=== PATIENT | female | born 1985 | race Caucasian/White ===

== ENCOUNTER → 2016-09-01 | Outpatient (CLI) | payer OTHER ==
[~2016-09-01] MED LIST: COLA100C PO; MOTR200T44 PO; NORMODYNE PO; PRENTAB54 PO; TYLENOL PO
[2016-09-01 10:32] LABS: BASO % 0.2 % (0.0-1.0); EOS # 0.2 K/mm3 (0.0-0.50); EOS % 1.6 % (0.0-3.0); LARGE UNSTAINED CELL # 0.1 K/mm3 (0.0-0.4); LARGE UNSTAINED CELL % 0.7 % (0.0-4.0); LYMPH # 1.8 K/mm3 (1.5-4.5); LYMPH % 14.2 % (24.0-44.0); MEAN CORPUSCULAR HEMOGLOBIN 30.1 pg (27.0-33.0); MEAN CORPUSCULAR HGB CONC 35.1 g/dl (32.0-36.5); MEAN CORPUSCULAR VOLUME 85.8 fl (80.0-96.0); MONO # 0.4 K/mm3 (0.0-0.8); MONO % 3.6 % (0.0-5.0); NEUTROPHILS # 9.3 K/mm3 (1.8-7.7); NEUTROPHILS % 79.7 % (36.0-66.0); PLATELET COUNT, AUTOMATED 312 k/mm3 (150-450); RED CELL DISTRIBUTION WIDTH 12.1 % (11.5-14.5); WHITE BLOOD COUNT 11.7 K/mm3 (4.0-10.0)
[2016-09-01 11:14] LABS: ALBUMIN 3.5 GM/DL (3.2-5.2); ALBUMIN/GLOBULIN RATIO 1.03 (1.00-1.93); ALKALINE PHOSPHATASE 81 U/L (45-117); ALT/SGPT 16 U/L (12-78); ANION GAP 9 MEQ/L (8-16); AST/SGOT 17 U/L (15-37); BILIRUBIN,TOTAL 0.4 MG/DL (0.2-1.0); BLOOD UREA NITROGEN 11 MG/DL (7-18); CALCIUM LEVEL 8.7 MG/DL (8.5-10.1); CARBON DIOXIDE LEVEL 27 MEQ/L (21-32); CHLORIDE LEVEL 106 MEQ/L (98-107); CHOLESTEROL LEVEL 196 MG/DL (<200); CREATININE FOR GFR 0.76 MG/DL (0.55-1.02); FREE T4 1.02 NG/DL (0.76-1.46); GLOMERULAR FILTRATION RATE > 60.0 (>60); GLUCOSE, FASTING 90 MG/DL (70-105); POTASSIUM SERUM 4.7 MEQ/L (3.5-5.1); SODIUM LEVEL 142 MEQ/L (136-145); TOTAL PROTEIN 6.9 GM/DL (6.4-8.2); TRIGLYCERIDES LEVEL 227 MG/DL (<150)
== END ==
LOC: M SMT 08:39
PROVIDERS: ATTEND Family Medicine
DX: Z13.0 Encounter for screening for diseases of the blood and blood-forming organs and certain disorders involving the immune mechanism (principal); Z13.29 Encounter for screening for other suspected endocrine disorder; Z13.220 Encounter for screening for lipoid disorders

== ENCOUNTER → 2016-09-01 | Outpatient (CLI) | payer OTHER ==
--- NOTE | 2016-09-01 08:54 | REP ---
Clinical: Hemangioma. Technique: Wu scale ultrasound using curved array transducer. Findings: The liver and pancreas are normal in contour, size, and echogenicity without focal hepatic or pancreatic lesions identified. Benign hepatic hemangiomas in the right lobe measure 2.5 cm diameter and smaller adjacent subcentimeter hemangioma. The gallbladder has been removed. No biliary ductal dilatation is appreciated, and the common bile duct measures 2.5 mm diameter. The right kidney is normal in reniform shape without hydronephrosis and measures 10.5 x 5.4 x 4.7 cm. No ascites. Impression: Two benign hepatic hemangiomas in the right lobe. Prior cholecystectomy. Signed by David Holrbook MD 09/01/2016 08:45 A
== END ==
LOC: M RAD 08:08
PROVIDERS: ATTEND Family Medicine
DX: K76.89 Other specified diseases of liver (principal); K77 Liver disorders in diseases classified elsewhere

== ENCOUNTER → 2017-01-02 | Outpatient (CLI) | payer OTHER ==
[~2017-01-02] MED LIST changes: -COLA100C PO; +COLA100C3 PO
[2017-01-02 13:22] LABS: BASO % 0.4 % (0.0-1.0); EOS # 0.1 K/mm3 (0.0-0.50); EOS % 1.6 % (0.0-3.0); LARGE UNSTAINED CELL # 0.1 K/mm3 (0.0-0.4); LARGE UNSTAINED CELL % 1.4 % (0.0-4.0); LYMPH % 24.9 % (24.0-44.0); MEAN CORPUSCULAR HEMOGLOBIN 30.3 pg (27.0-33.0); MEAN CORPUSCULAR HGB CONC 34.1 g/dl (32.0-36.5); MEAN CORPUSCULAR VOLUME 88.9 fl (80.0-96.0); MONO # 0.5 K/mm3 (0.0-0.8); MONO % 6.8 % (0.0-5.0); NEUTROPHILS % 64.8 % (36.0-66.0); PLATELET COUNT, AUTOMATED 322 k/mm3 (150-450); RED CELL DISTRIBUTION WIDTH 12.8 % (11.5-14.5); WHITE BLOOD COUNT 7.7 K/mm3 (4.0-10.0)
[2017-01-03 10:51] LABS: HBsAg Prenatal NEGATIVE (NEGATIVE)
== END ==
LOC: M SMT 09:36
PROVIDERS: ATTEND Advanced Practice Midwife
DX: Z34.81 Encounter for supervision of other normal pregnancy, first trimester (principal)

== ENCOUNTER 2017-02-02 12:44 | Emergency (ER) | payer OTHER ==
[~2017-02-02] VITALS: Ht 172.7 cm; Wt 105.9 kg
[~2017-02-02 12:44] MED LIST changes: -COLA100C3 PO; +COLA100C5 PO
[2017-02-02 14:34] LABS: BASO % 0.5 % (0.0-1.0); EOS # 0.2 K/mm3 (0.0-0.50); EOS % 1.7 % (0.0-3.0); LARGE UNSTAINED CELL # 0.1 K/mm3 (0.0-0.4); LARGE UNSTAINED CELL % 1.4 % (0.0-4.0); LYMPH # 2.8 K/mm3 (1.5-4.5); LYMPH % 26.6 % (24.0-44.0); MEAN CORPUSCULAR HEMOGLOBIN 29.7 pg (27.0-33.0); MEAN CORPUSCULAR HGB CONC 34.5 g/dl (32.0-36.5); MEAN CORPUSCULAR VOLUME 86.2 fl (80.0-96.0); MONO # 0.6 K/mm3 (0.0-0.8); MONO % 5.8 % (0.0-5.0); NEUTROPHILS # 6.5 K/mm3 (1.8-7.7); NEUTROPHILS % 64.1 % (36.0-66.0); PLATELET COUNT, AUTOMATED 373 k/mm3 (150-450); RED CELL DISTRIBUTION WIDTH 12.3 % (11.5-14.5); WHITE BLOOD COUNT 10.1 K/mm3 (4.0-10.0)
[2017-02-02 14:57] LABS: ANION GAP 10 MEQ/L (8-16); BLOOD UREA NITROGEN 9 MG/DL (7-18); CALCIUM LEVEL 9.2 MG/DL (8.5-10.1); CARBON DIOXIDE LEVEL 26 MEQ/L (21-32); CHLORIDE LEVEL 103 MEQ/L (98-107); CREATININE FOR GFR 0.64 MG/DL (0.55-1.02); GLOMERULAR FILTRATION RATE > 60.0 (>60); GLUCOSE, FASTING 88 MG/DL (70-105); POTASSIUM SERUM 3.5 MEQ/L (3.5-5.1); SODIUM LEVEL 139 MEQ/L (136-145)
--- NOTE | 2017-02-02 16:42 | REP ---
FIRST TRIMESTER ULTRASOUND: Real-time sonographic evaluation of the gravid uterus is performed utilizing transabdominal and endovaginal technique. Uterus measures 8.3 x 5.2 x 5.1 cm. Intrauterine gestational sac contains a pole with a crown rump length of 16 mm. No heart motion is detected, consistent with demise. That size corresponds to an 8 week gestational age. Right ovary measures 3.6 x 2.6 x 1.7 cm and left ovary measures 6.6 x 5.3 x 6.0 cm. There is a cyst of the left ovary 4.9 x 5.8 x 4.7 cm. There is no evidence of ovarian torsion bilaterally, with blood flow seen in each ovary with Duplex Doppler evaluation. No free fluid is seen. IMPRESSION: Intrauterine gestational sac contains a fetus with a length of 16 mm corresponding to 8 weeks gestational age. No heart motion is detected consistent with intrauterine demise. Left ovarian cyst 5.8 cm maximum diameter. No torsion. Signed by Daniel Wu MD 02/02/2017 04:47 P
[2017-02-02 16:52] VITALS: BP 120/78
[2017-02-05] MEDS ORDERED: OXYC1TAB23 PO (15:19)
== END 2017-02-02 16:53 | disposition home or self-care (01) ==
LOC: M ED 12:44
DX: O02.1 Missed abortion (principal)

== ENCOUNTER → 2017-02-05 | Day surgery (SDC) | payer OTHER ==
[~2017-02-05] MED LIST changes: +ALBUTEROL SULFATE 2.5 MG/0.5 ML INH NEB SOLN As Ordered ONE; +ALBUTEROL SULFATE 2.5 MG/0.5 ML INH NEB SOLN INH ONE; +DOXYCYCLINE HYCLATE 100 MG TAB PO ONE; +DOXYCYCLINE HYCLATE 100 MG in D5W MINI-BAG PLUS 100 ML IV ONE; +HYDROmorphone HCL 1 MG/ML SYRINGE (J1170) IV PRN; +KETOROLAC 60 MG/2 ML VIAL (J1885) As Ordered ONE; +LIDOCAINE 2% INJ 100 MG/5 ML SDV (FOR ANES.) As Ordered ONE; +LR 1,000 ML IV ONE; +LR 1,000 ML IV SCH; +MIDAZOLAM INJ 2 MG/2 ML VIAL (J2250) As Ordered ONE; +ONDANSETRON 4MG/2ML VIAL (J2405) As Ordered ONE; +ONDANSETRON 4MG/2ML VIAL (J2405) IV PRN; +OXYC1TAB23 PO; +PERCOCET 5MG/325MG TAB PO PRN; +PROPOFOL 200 MG/20 ML VIAL As Ordered ONE; +SILVER NITRATE APPLICATOR As Ordered ONE; +dexameTHASONE 4 MG/ML 1ML VIAL (J1100) As Ordered ONE; +fentaNYL 100 MCG/2 ML INJECTION (J3010) As Ordered ONE; +fentaNYL 100 MCG/2 ML INJECTION (J3010) IV PRN
[2017-02-05 16:00] VITALS: BP 137/88
--- NOTE | 2017-02-06 15:20 | RO ---
DATE OF PROCEDURE: 02/05/2017 PREOPERATIVE DIAGNOSIS: Missed , embryonic demise in the first trimester. POSTOPERATIVE DIAGNOSIS: Missed , embryonic demise in the first trimester. PROCEDURE PERFORMED: Suction dilatation and curettage. SURGEON: Solo Zhao DO INSPECTOR BALANCE WHEEL MOTION: None. ANESTHESIA: General via LMA. SPECIMENS TO PATHOLOGY: Intrauterine tissue, products of conception. ESTIMATED BLOOD LOSS: 100 mL FLUIDS REPLACED: Lactated Ringer's 600 mL. DRAINS: 50 mL urine output, in-and-out catheter. COMPLICATIONS: None. PREOPERATIVE ANTIBIOTICS: Doxycycline 100 mg IV times one. INTRAOPERATIVE FINDINGS: Uterus sounded to 8 to 10 cm. Tissue obtained was grossly consistent with products of conception. INDICATION: The patient is a 31-year-old, G2 now P1-0-1-1 with a recently diagnosed first trimester embryonic demise/miscarriage. She was counseled on available management options to include expectant medical and surgical. She has chosen surgical management via suction dilatation and curettage. PROCEDURE: The patient was counseled and on risks, benefits, indications and alternative procedure. Informed consent was obtained. She was taken to the operating room with an IV running, placed on operating table in the dorsal supine position. General anesthesia was administered and the airway secured without any difficulty. She was placed in low lithotomy position. She was prepared and draped in normal sterile fashion. A time-out was performed per protocol. The bladder was drained with a sterile in-and-out catheter. Sterile speculum was placed with good visualization of the cervix. The anterior lip of the cervix was grasped with single-tooth tenaculum and downward traction was applied. The cervix then sequentially dilated with Evaristo dilators up to #20. The size 9 curved Vacurette was placed transcervical into the intrauterine cavity and suction was applied. Multiple passes of the Vacurette were performed until there was minimal tissue and bleeding return. After the Vacurette was removed, sharp curettage was performed throughout the entire intrauterine cavity. Gritty texture was noted throughout and no residual tissue was appreciated. Minimal bleeding was noted. An additional pass of the Vacurette was performed with minimal blood and tissue return. The Vacurette was removed. Minimal bleeding from the os was noted. The single-tooth tenaculum was removed. Tenaculum sites were cauterized with silver nitrate. Excellent hemostasis was noted. Instruments and sponge count were correct times two. The patient tolerated the entire procedure well. all instruments were noted to be removed from vagina. She was transferred the postanesthesia care unit in good and stable condition.
== END | disposition home or self-care (01) ==
LOC: M SDC 12:22
PROVIDERS: ATTEND Obstetrics & Gynecology
DX: O02.1 Missed abortion (principal); R05 Cough
CPT/HCPCS: 36415; 59820; 85014; 85018; 88305; J1100; J1885; J2250; J2405; J3010

== ENCOUNTER → 2017-04-10 | Outpatient (CLI) | payer OTHER ==
[~2017-04-10] MED LIST changes: -ALBUTEROL SULFATE 2.5 MG/0.5 ML INH NEB SOLN As Ordered ONE; -ALBUTEROL SULFATE 2.5 MG/0.5 ML INH NEB SOLN INH ONE; -DOXYCYCLINE HYCLATE 100 MG TAB PO ONE; -DOXYCYCLINE HYCLATE 100 MG in D5W MINI-BAG PLUS 100 ML IV ONE; -HYDROmorphone HCL 1 MG/ML SYRINGE (J1170) IV PRN; -KETOROLAC 60 MG/2 ML VIAL (J1885) As Ordered ONE; -LIDOCAINE 2% INJ 100 MG/5 ML SDV (FOR ANES.) As Ordered ONE; -LR 1,000 ML IV ONE; -LR 1,000 ML IV SCH; -MIDAZOLAM INJ 2 MG/2 ML VIAL (J2250) As Ordered ONE; -ONDANSETRON 4MG/2ML VIAL (J2405) As Ordered ONE; -ONDANSETRON 4MG/2ML VIAL (J2405) IV PRN; -PERCOCET 5MG/325MG TAB PO PRN; -PROPOFOL 200 MG/20 ML VIAL As Ordered ONE; -SILVER NITRATE APPLICATOR As Ordered ONE; -dexameTHASONE 4 MG/ML 1ML VIAL (J1100) As Ordered ONE; -fentaNYL 100 MCG/2 ML INJECTION (J3010) As Ordered ONE; -fentaNYL 100 MCG/2 ML INJECTION (J3010) IV PRN
== END ==
LOC: M LAB 16:00
PROVIDERS: ATTEND Obstetrics & Gynecology
DX: N91.2 Amenorrhea, unspecified (principal)

== ENCOUNTER → 2017-04-12 | Outpatient (CLI) | payer OTHER | LOC: M LAB 16:03 | PROVIDERS: ATTEND Obstetrics & Gynecology | DX: N91.2 Amenorrhea, unspecified (principal) ==

== ENCOUNTER 2017-05-30 10:13 | Emergency (ER) | payer OTHER ==
[~2017-05-30] VITALS: Ht 172.7 cm; Wt 107.7 kg
[2017-05-30 11:49] LABS: BASO % 0.2 % (0.0-1.0); EOS % 0.4 % (0.0-3.0); IMMATURE GRANULOCYTE % 0.4 % (0-0); LYMPH # 1.6 10^3/uL (1.5-4.5); LYMPH % 15.2 % (24.0-44.0); MEAN CORPUSCULAR HEMOGLOBIN 30.3 pg (27.0-33.0); MEAN CORPUSCULAR HGB CONC 34.5 g/dl (32.0-36.5); MEAN CORPUSCULAR VOLUME 87.8 fl (80.0-96.0); MONO # 0.7 10^3/uL (0.0-0.8); MONO % 6.8 % (0.0-5.0); PLATELET COUNT, AUTOMATED 333 10^3/uL (150-450); RED CELL DISTRIBUTION WIDTH 12.1 % (11.5-14.5); WHITE BLOOD COUNT 10.4 10^3/uL (4.0-10.0)
--- NOTE | 2017-05-30 12:38 | REP ---
OB ULTRASOUND: Real-time sonographic evaluation of the gravid uterus is performed utilizing transabdominal technique. There is a single living intrauterine gestation. The estimated gestational age is 11 weeks based on a crown/rump length of 42 mm, EDC 12/19/2017. heart rate is 180 beats per minute. There is no subchorionic hemorrhage. Corpus luteum of the left ovary measures 3.4 x 2.3 x 3.4 cm. Blood flow is seen in each ovary with duplex Doppler evaluation, with no torsion. Signed by Daniel Wu MD 05/30/2017 01:55 P
[2017-05-30 12:57] VITALS: BP 145/84
== END 2017-05-30 12:58 | disposition home or self-care (01) ==
LOC: M ED 10:13
DX: O20.0 Threatened abortion (principal); Z3A.11 11 weeks gestation of pregnancy; O13.1 Gestational [pregnancy-induced] hypertension without significant proteinuria, first trimester

== ENCOUNTER → 2017-06-29 | Outpatient (CLI) | payer OTHER ==
[2017-06-29 07:30] LABS: BASO % 0.2 % (0.0-1.0); EOS # 0.1 10^3/uL (0.0-0.50); IMMATURE GRANULOCYTE % 0.4 % (0-0); LYMPH # 1.4 10^3/uL (1.5-4.5); LYMPH % 14.1 % (24.0-44.0); MEAN CORPUSCULAR HEMOGLOBIN 29.8 pg (27.0-33.0); MEAN CORPUSCULAR HGB CONC 34.3 g/dl (32.0-36.5); MEAN CORPUSCULAR VOLUME 86.8 fl (80.0-96.0); MONO # 0.7 10^3/uL (0.0-0.8); MONO % 7.1 % (0.0-5.0); NEUTROPHILS # 7.8 10^3/uL (1.8-7.7); NEUTROPHILS % 77.2 % (36.0-66.0); PLATELET COUNT, AUTOMATED 289 10^3/uL (150-450); RED CELL DISTRIBUTION WIDTH 12.5 % (11.5-14.5)
[2017-06-29 10:30] LABS: HBsAg Prenatal NEGATIVE (NEGATIVE)
== END ==
LOC: M LAB 06:32
PROVIDERS: ATTEND Obstetrics & Gynecology
DX: Z36.9 Encounter for antenatal screening, unspecified (principal); Z13.79 Encounter for other screening for genetic and chromosomal anomalies; Z3A.12 12 weeks gestation of pregnancy

== ENCOUNTER → 2017-07-06 | Outpatient (CLI) | payer OTHER ==
[2017-07-06 13:00] LABS: ALT/SGPT 16 U/L (12-78); AST/SGOT 12 U/L (7-37); BILIRUBIN,TOTAL 0.3 MG/DL (0.2-1.0); CREATININE FOR GFR 0.61 MG/DL (0.55-1.02); GLOMERULAR FILTRATION RATE > 60.0 (>60); URIC ACID 3.6 MG/DL (2.6-6.0)
== END ==
LOC: M SMT 09:38
DX: Z34.82 Encounter for supervision of other normal pregnancy, second trimester (principal)

== ENCOUNTER → 2017-09-25 | Outpatient (CLI) | payer OTHER ==
[2017-09-25 13:30] LABS: BASO % 0.3 % (0.0-1.0); EOS # 0.1 10^3/uL (0.0-0.50); EOS % 0.7 % (0.0-3.0); HEMATOCRIT 32.5 % (36.0-47.0); HEMOGLOBIN 10.7 g/dl (12.0-16.0); IMMATURE GRANULOCYTE % 1.1 % (0-3.0); LYMPH # 1.5 10^3/uL (1.5-4.5); LYMPH % 13.3 % (24.0-44.0); MEAN CORPUSCULAR HEMOGLOBIN 30.1 pg (27.0-33.0); MEAN CORPUSCULAR HGB CONC 32.9 g/dl (32.0-36.5); MEAN CORPUSCULAR VOLUME 91.5 fl (80.0-96.0); MONO # 0.6 10^3/uL (0.0-0.8); MONO % 5.8 % (0.0-5.0); NEUTROPHILS # 8.7 10^3/uL (1.8-7.7); NEUTROPHILS % 78.8 % (36.0-66.0); PLATELET COUNT, AUTOMATED 258 10^3/uL (150-450); RED BLOOD COUNT 3.55 10^6/uL (4.00-5.40); RED CELL DISTRIBUTION WIDTH 13.5 % (11.5-14.5)
[2017-09-25 14:02] LABS: GLUCOSE CHALLENGE TEST 1 HOUR 114 MG/DL (LESS THAN 140)
== END ==
LOC: M SMT 07:54
DX: Z34.82 Encounter for supervision of other normal pregnancy, second trimester (principal); Z36.89 Encounter for other specified antenatal screening
CPT/HCPCS: 82950

== ENCOUNTER → 2017-11-06 | Outpatient (CLI) | payer OTHER ==
[2017-11-06 20:09] LABS: HEMOGLOBIN 11.3 g/dl (12.0-15.5); MEAN CORPUSCULAR HEMOGLOBIN 30.2 pg (27.0-33.0); MEAN CORPUSCULAR HGB CONC 33.2 g/dl (32.0-36.5); MEAN CORPUSCULAR VOLUME 90.9 fl (80.0-96.0); PLATELET COUNT, AUTOMATED 266 10^3/uL (150-450); RED BLOOD COUNT 3.74 10^6/uL (4.00-5.40); RED CELL DISTRIBUTION WIDTH 13.5 % (11.5-14.5); WHITE BLOOD COUNT 12.1 10^3/uL (4.0-10.0)
[2017-11-06 20:15] LABS: ALT/SGPT 12 U/L (12-78); AST/SGOT 15 U/L (7-37); BILIRUBIN,TOTAL 0.3 MG/DL (0.2-1.0); CREATININE FOR GFR 0.64 MG/DL (0.55-1.30); GLOMERULAR FILTRATION RATE > 60.0 (>60); LDH LACTATE DEHYDROGENASE 188 U/L (84-246); URIC ACID 4.4 MG/DL (2.6-6.0)
== END ==
LOC: M WUC 16:23
DX: Z36.89 Encounter for other specified antenatal screening (principal); Z3A.00 Weeks of gestation of pregnancy not specified
CPT/HCPCS: 84460

== ENCOUNTER → 2017-11-06 | Outpatient (REF) | payer OTHER ==
[2017-11-06 19:54] LABS: TOTAL PROTEIN,RANDOM URINE 11.3 MG/DL (0.0-12.0)
[2017-11-06 19:54] LABS: CREATININE,RANDOM URINE 97.3 MG/DL
== END ==
LOC: M LAB REF 18:11
DX: Z34.83 Encounter for supervision of other normal pregnancy, third trimester (principal)

== ENCOUNTER → 2017-11-23 | Outpatient (CLI) | payer OTHER ==
[2017-11-23 13:45] LABS: BASO % 0.3 % (0.0-1.0); EOS # 0.1 10^3/uL (0.0-0.50); EOS % 0.5 % (0.0-3.0); HEMATOCRIT 35.2 % (36.0-47.0); HEMOGLOBIN 11.8 g/dl (12.0-15.5); IMMATURE GRANULOCYTE % 1.3 % (0-3.0); LYMPH # 1.9 10^3/uL (1.5-4.5); LYMPH % 15.9 % (24.0-44.0); MEAN CORPUSCULAR HEMOGLOBIN 30.3 pg (27.0-33.0); MEAN CORPUSCULAR HGB CONC 33.5 g/dl (32.0-36.5); MEAN CORPUSCULAR VOLUME 90.5 fl (80.0-96.0); MONO % 8.7 % (0.0-5.0); NEUTROPHILS # 8.7 10^3/uL (1.8-7.7); NEUTROPHILS % 73.3 % (36.0-66.0); PLATELET COUNT, AUTOMATED 244 10^3/uL (150-450); RED BLOOD COUNT 3.89 10^6/uL (4.00-5.40); RED CELL DISTRIBUTION WIDTH 13.8 % (11.5-14.5); WHITE BLOOD COUNT 11.9 10^3/uL (4.0-10.0)
[2017-11-23 14:01] LABS: ALT/SGPT 15 U/L (12-78); AST/SGOT 15 U/L (7-37); BILIRUBIN,TOTAL 0.3 MG/DL (0.2-1.0); CREATININE FOR GFR 0.63 MG/DL (0.55-1.30); GLOMERULAR FILTRATION RATE > 60.0 (>60); LDH LACTATE DEHYDROGENASE 209 U/L (84-246); URIC ACID 5.5 MG/DL (2.6-6.0)
[2017-11-23 14:20] LABS: CREATININE,RANDOM URINE 31.9 MG/DL
[2017-11-23 14:20] LABS: TOTAL PROTEIN,RANDOM URINE 11.8 MG/DL (0.0-12.0)
== END ==
LOC: M SMT 09:24
DX: O13.3 Gestational [pregnancy-induced] hypertension without significant proteinuria, third trimester (principal)
CPT/HCPCS: 84460

== ENCOUNTER → 2017-11-23 | Outpatient (REF) | payer OTHER | LOC: M LAB REF 12:56 | DX: Z34.93 Encounter for supervision of normal pregnancy, unspecified, third trimester (principal) ==

== ENCOUNTER → 2017-11-26 | Outpatient (CLI) | payer OTHER | LOC: M RAD 06:15 | DX: I10 Essential (primary) hypertension (principal) | CPT/HCPCS: 76815 ==

== ENCOUNTER 2017-11-30 13:04 | Inpatient (IN) | payer OTHER ==
[2017-11-30] MEDS: LR 1,000 ML IV ×2 (14:14→22:23)
[2017-11-30 14:31] LABS: HEMATOCRIT 35.4 % (36.0-47.0); HEMOGLOBIN 11.9 g/dl (12.0-15.5); MEAN CORPUSCULAR HEMOGLOBIN 30.1 pg (27.0-33.0); MEAN CORPUSCULAR HGB CONC 33.6 g/dl (32.0-36.5); MEAN CORPUSCULAR VOLUME 89.4 fl (80.0-96.0); PLATELET COUNT, AUTOMATED 227 10^3/uL (150-450); RED BLOOD COUNT 3.96 10^6/uL (4.00-5.40); RED CELL DISTRIBUTION WIDTH 13.9 % (11.5-14.5); WHITE BLOOD COUNT 11.1 10^3/uL (4.0-10.0)
[2017-11-30] MEDS: OXYTOCIN DRIP 30 UNITS in APPROPRIATE DILUENT 1 EA IV (14:41)
[2017-11-30 14:47] LABS: CREATININE,RANDOM URINE 41.9 MG/DL
[2017-11-30 14:47] LABS: TOTAL PROTEIN,RANDOM URINE < 5.0 MG/DL (0.0-12.0)
[2017-11-30 14:48] LABS: ALT/SGPT 15 U/L (12-78); AST/SGOT 18 U/L (7-37); BILIRUBIN,TOTAL 0.3 MG/DL (0.2-1.0); CREATININE FOR GFR 0.64 MG/DL (0.55-1.30); GLOMERULAR FILTRATION RATE > 60.0 (>60); LDH LACTATE DEHYDROGENASE 227 U/L (84-246); URIC ACID 6.3 MG/DL (2.6-6.0)
[2017-11-30] MEDS ORDERED: OXYTOCIN 30 UNITS IN 0.9% NaCl 500ML IV BAG (J2590) As Ordered (23:34)
[2017-11-30] MEDS ORDERED: ONDANSETRON 4MG/2ML VIAL (J2405) IV (23:45)
[2017-11-30] MEDS ORDERED: DIBUCAINE 1% OINTMENT 30GM TOP (23:45)
[2017-11-30] MEDS ORDERED: ACETAMINOPHEN 500 MG TAB PO (23:45)
[2017-11-30] MEDS ORDERED: PROMETHAZINE 25 MG TAB PO (23:45)
[2017-11-30] MEDS ORDERED: RHOGAM 300 MCG (1500 IU) INJ (J2790) IM (23:45)
[2017-11-30] MEDS ORDERED: MEASLES,MUMPS,RUBELLA VACCINE INJ (MMR-II) (90707) SC (23:45)
[2017-11-30] MEDS ORDERED: DOCUSATE SODIUM 100 MG CAP PO (23:45)
[2017-12-01] MEDS: OXYTOCIN DRIP 30 UNITS in APPROPRIATE DILUENT 1 EA IV ×2 (00:04→00:05)
[2017-12-01] MEDS: LIDOCAINE 1% MDV 20ML VIAL INFIL (00:05)
[2017-12-01] MEDS: LACTATED RINGER'S 1000 ML IV (00:23)
[2017-12-01] MEDS: LR 1,000 ML IV (00:24)
[2017-12-01] MEDS: PRENATAL VITAMINS CHEWABLE TABLET PO (09:25)
[2017-12-01] MEDS: IBUPROFEN 800 MG TAB PO (16:40)
[2017-12-02] MEDS: PRENATAL VITAMINS CHEWABLE TABLET PO (07:40)
[2017-12-02] MEDS: IBUPROFEN 800 MG TAB PO (07:40)
== END 2017-12-02 13:30 | disposition home or self-care (01) | DRG 774 ==
LOC: M LDI 13:04 → M OBS 12-01 01:05
PROC: 10E0XZZ Delivery of Products of Conception, External Approach (ICD-10-PCS; principal; 2017-11-30)
PROC: 0KQM0ZZ Repair Perineum Muscle, Open Approach (ICD-10-PCS; 2017-11-30)
PROC: 3E033VJ Introduction of Other Hormone into Peripheral Vein, Percutaneous Approach (ICD-10-PCS; 2017-11-30)
PROC: 10907ZC Drainage of Amniotic Fluid, Therapeutic from Products of Conception, Via Natural or Artificial Opening (ICD-10-PCS; 2017-11-30)
DX: O10.02 Pre-existing essential hypertension complicating childbirth (principal); Z37.0 Single live birth; Z3A.37 37 weeks gestation of pregnancy; Z90.49 Acquired absence of other specified parts of digestive tract; O70.1 Second degree perineal laceration during delivery

== ENCOUNTER → 2018-02-27 | Outpatient (CLI) | payer OTHER ==
[2018-02-27 13:33] LABS: BASO % 0.4 % (0.0-1.0); EOS # 0.2 10^3/uL (0.0-0.50); EOS % 2.1 % (0.0-3.0); HEMATOCRIT 40.4 % (36.0-47.0); HEMOGLOBIN 13.3 g/dl (12.0-15.5); IMMATURE GRANULOCYTE % 0.4 % (0-3.0); LYMPH # 2.1 10^3/uL (1.5-4.5); LYMPH % 25.4 % (24.0-44.0); MEAN CORPUSCULAR HEMOGLOBIN 29.2 pg (27.0-33.0); MEAN CORPUSCULAR HGB CONC 32.9 g/dl (32.0-36.5); MEAN CORPUSCULAR VOLUME 88.6 fl (80.0-96.0); MONO # 0.8 10^3/uL (0.0-0.8); MONO % 9.3 % (0.0-5.0); NEUTROPHILS # 5.1 10^3/uL (1.8-7.7); NEUTROPHILS % 62.4 % (36.0-66.0); PLATELET COUNT, AUTOMATED 376 10^3/uL (150-450); RED BLOOD COUNT 4.56 10^6/uL (4.00-5.40); RED CELL DISTRIBUTION WIDTH 12.7 % (11.5-14.5); WHITE BLOOD COUNT 8.2 10^3/uL (4.0-10.0)
[2018-02-27 13:57] LABS: FREE T4 0.77 NG/DL (0.76-1.46); THYROID STIMULATING HORMONE 0.728 uIU/ML (0.358-3.740)
[2018-02-27 15:30] LABS: ESTIMATED AVERAGE GLUCOSE 114 MG/DL (60-110); HEMOGLOBIN A1c 5.6 %
== END ==
LOC: M SMT 09:50
DX: Z13.29 Encounter for screening for other suspected endocrine disorder (principal); Z13.0 Encounter for screening for diseases of the blood and blood-forming organs and certain disorders involving the immune mechanism
CPT/HCPCS: 84443

== ENCOUNTER → 2018-05-22 | Outpatient (REF) | payer OTHER | LOC: M LAB REF 22:05 | DX: J02.9 Acute pharyngitis, unspecified (principal) ==

== ENCOUNTER → 2018-08-27 | Outpatient (CLI) | payer OTHER ==
[~2018-08-27] MED LIST changes: +ASPI1TAB PO; +IBUP-1114 PO; +MAPA500T2 PO; +PRENTAB9 PO
== END ==
LOC: M LAB 14:46
PROVIDERS: ATTEND Advanced Practice Midwife
DX: N91.2 Amenorrhea, unspecified (principal)

== ENCOUNTER → 2018-08-29 | Outpatient (CLI) | payer OTHER | LOC: M LAB 14:04 | PROVIDERS: ATTEND Advanced Practice Midwife | DX: N91.2 Amenorrhea, unspecified (principal) ==

== ENCOUNTER → 2018-10-14 | Outpatient (CLI) | payer OTHER ==
[~2018-10-14] MED LIST changes: -ASPI1TAB PO; +ASPI81TA26 PO
[2018-10-14 06:54] LABS: BASO % 0.2 % (0.0-1.0); EOS # 0.1 10^3/uL (0.0-0.50); EOS % 1.4 % (0.0-3.0); HEMOGLOBIN 12.6 g/dl (12.0-15.5); LYMPH # 1.9 10^3/uL (1.5-4.5); LYMPH % 21.1 % (24.0-44.0); MEAN CORPUSCULAR HGB CONC 33.2 g/dl (32.0-36.5); MEAN CORPUSCULAR VOLUME 87.4 fl (80.0-96.0); MONO # 0.5 10^3/uL (0.0-0.8); MONO % 5.1 % (0.0-5.0); NEUTROPHILS # 6.6 10^3/uL (1.8-7.7); NEUTROPHILS % 71.9 % (36.0-66.0); PLATELET COUNT, AUTOMATED 290 10^3/uL (150-450); RED BLOOD COUNT 4.35 10^6/uL (4.00-5.40); WHITE BLOOD COUNT 9.1 10^3/uL (4.0-10.0)
[2018-10-14 10:11] LABS: CHLAMYDIA DNA AMPLIFICATION NEGATIVE (NEGATIVE); GC DNA AMPLIFICATION NEGATIVE (NEGATIVE)
[2018-10-14 10:42] LABS: HEPATITIS B SURFACE ANTIGEN NEGATIVE (NEGATIVE); HIV 1&2 SCREEN CENTAUR NEGATIVE (NEGATIVE); RUBELLA IgG QUALITATIVE IMMUNE (IMMUNE)
== END ==
LOC: M LAB 06:12
PROVIDERS: ATTEND Advanced Practice Midwife
DX: Z34.81 Encounter for supervision of other normal pregnancy, first trimester (principal); Z3A.08 8 weeks gestation of pregnancy

== ENCOUNTER → 2018-12-11 | Outpatient (CLI) | payer OTHER ==
--- NOTE | 2018-12-11 18:18 | REP ---
Clinical: Anatomical evaluation. Comparison: None . Findings: Examination demonstrates a single live intrauterine in transverse (head to maternal left) presentation. motion is identified by technologist. Placenta is noted anterior and grade zero without evidence for placenta previa or abruption. Amniotic fluid volume is normal. Cervix measures 4.5 cm in length and appears closed. No evidence for nuchal cord. Gestational age by LMP 18 weeks 4 days with AMY 05/10/2019 . Gestational age by current measurements 19 weeks 0 days with AMY 05/07/2019 . FHR equals 141 beats per minute. BPD 4.4 cm 19 weeks 3 days HC 16.2 cm 19 weeks 0 days AC 13.9 cm 19 weeks 2 days FL 2.9 cm 18 weeks 6 days HL 2.8 cm 18 weeks 6 days HC/AC ratio 1.17 Estimated weight 272 grams ( 64 percentile). Anatomical assessment demonstrates normal structures including cranium, choroid plexus, cavum, cerebellum/posterior fossa, diaphragm, stomach, cord insertion/three-vessel cord, kidneys/bladder, spine, and upper extremities. Limited evaluation of the facial features, lungs, heart/ventricular outflow tracts, and lower extremities. Impression: Single live intrauterine in transverse lie demonstrating appropriate interval growth. 2. Anatomical limitations as noted above may warrant reevaluation and follow-up. Electronically Signed by David Holbrook MD 12/11/2018 06:09 P
== END ==
LOC: M RAD 16:33
PROVIDERS: ATTEND Advanced Practice Midwife
DX: O10.012 Pre-existing essential hypertension complicating pregnancy, second trimester (principal); Z3A.18 18 weeks gestation of pregnancy; O32.2XX0 Maternal care for transverse and oblique lie, not applicable or unspecified

== ENCOUNTER → 2018-12-25 | Outpatient (CLI) | payer OTHER ==
--- NOTE | 2018-12-26 07:27 | REP ---
OB ULTRASOUND: Real-time sonographic evaluation of the gravid uterus is performed. There is a single living intrauterine gestation. The estimated gestational age is 20-weeks 4 days, EDC 05/10/2019. Today's measurements indicated appropriate growth. BPD 49 mm 20 weeks 5 days at the 52nd percentile. HC 187 mm 21 weeks 0 days, 62nd percentile. AC 160 mm 21 weeks 1 day, 62nd percentile. Femur length 33 mm 20 weeks 1 day, 40th percentile. HC to AC ratio 1.16 within normal range. Estimated weight 374 grams, 51st percentile. Cervix is closed and measures 3.5 cm in length. heart rate 133 beats per minute. SEEN/GROSSLY UNREMARKABLE Lateral ventricles Yes Posterior fossa Yes Upper lip No Four-chamber heart No LVOT Yes RVOT Yes Stomach Yes Cord insertion Yes Three vessel cord Yes Kidneys Yes Bladder Yes Spine Yes position: Breech. Placenta: Anterior and grade 1 with no previa or abruption. Amniotic fluid: Within normal limits. Electronically Signed by Daniel Wu MD 12/26/2018 09:21 A
== END ==
LOC: M RAD 16:43
PROVIDERS: ATTEND Obstetrics & Gynecology
DX: Z34.82 Encounter for supervision of other normal pregnancy, second trimester (principal); Z3A.20 20 weeks gestation of pregnancy

== ENCOUNTER → 2019-02-04 | Outpatient (CLI) | payer OTHER ==
[2019-02-04 09:28] LABS: BASO % 0.3 % (0.0-1.0); EOS # 0.1 10^3/uL (0.0-0.50); HEMATOCRIT 35.5 % (36.0-47.0); HEMOGLOBIN 11.7 g/dl (12.0-15.5); LYMPH # 1.8 10^3/uL (1.5-4.5); LYMPH % 16.7 % (24.0-44.0); MEAN CORPUSCULAR HEMOGLOBIN 30.5 pg (27.0-33.0); MEAN CORPUSCULAR VOLUME 92.4 fl (80.0-96.0); MONO # 0.7 10^3/uL (0.0-0.8); MONO % 6.3 % (0.0-5.0); NEUTROPHILS # 8.3 10^3/uL (1.8-7.7); NEUTROPHILS % 74.9 % (36.0-66.0); PLATELET COUNT, AUTOMATED 252 10^3/uL (150-450); RED BLOOD COUNT 3.84 10^6/uL (4.00-5.40)
== END ==
LOC: M LAB 07:26
PROVIDERS: ATTEND Specialist
DX: O09.212 Supervision of pregnancy with history of pre-term labor, second trimester (principal); Z3A.00 Weeks of gestation of pregnancy not specified

== ENCOUNTER → 2019-02-17 | Outpatient (CLI) | payer OTHER ==
--- NOTE | 2019-02-18 08:58 | REP ---
Obstetric sonography: History: Supervision of , followup anatomy. Facial profile and four-chamber heart. Sonographic findings: Scanning through the gravid uterus demonstrates a viable single intrauterine gestation in a cephalic lie. motion is observed and heart rate is recorder 137 beats per minute. An anterior grade zero placenta is seen without evidence of previa or abruption. Amniotic fluid is subjectively normal. Closed cervical length is 4.2 cm. No extrauterine abnormalities observed. There has been appropriate interval growth. No anomaly is seen. The upper and lower extremities and choroid plexus areas are visualized less than optimally today however these areas were visualized previously. Face and profile views and four-chamber heart views are achieved today and are normal. The following additional anatomic structures are identified again and felt to be unremarkable: cranium, cavum, cerebellum posterior fossa, lungs, left and right ventricular outflow tract views, diaphragm, left-sided stomach, abdominal wall cord insertion, three-vessel umbilical cord, kidneys and bladder, spine. Biometry chart: BPD 7.9 cm 31 weeks 5 days Head circumference 28.1 cm 30 weeks 6 days Abdominal circumference 24.8 cm 29 weeks 0 days Femur length 5.3 cm 28 weeks 2 days Humeral length 4.9 cm 28 weeks 4 days HC/AC ratio normal 1.13, cephalic index normal 0.80, estimated weight 1342 grams, 2 pounds 15 ounces, 62nd percentile for 28 weeks 2 days. Closed cervical length 4.2 cm. heart rate 137 beats per minute. LADY normal 16.8 cm. Impression: Viable single intrauterine gestation at 29 weeks 5 days by today's composite sonographic criteria. Expected gestational age estimate based on prior sonography is 28 weeks 5 days. AMY by prior sonography May 07, 2019. anatomic survey is felt to be complete in conjunction with the previous sonogram. Electronically Signed by Misael Allison MD 02/18/2019 07:27 P
== END ==
LOC: M RAD 17:32
PROVIDERS: ATTEND Advanced Practice Midwife
DX: O09.212 Supervision of pregnancy with history of pre-term labor, second trimester (principal); Z3A.29 29 weeks gestation of pregnancy

== ENCOUNTER → 2019-04-11 | Outpatient (REF) | payer OTHER | LOC: M LAB REF 16:41 | PROVIDERS: ATTEND Advanced Practice Midwife | DX: Z36.85 Encounter for antenatal screening for Streptococcus B (principal); O09.213 Supervision of pregnancy with history of pre-term labor, third trimester; Z3A.00 Weeks of gestation of pregnancy not specified ==

== ENCOUNTER → 2019-04-11 | Outpatient (CLI) | payer OTHER ==
[2019-04-11 17:34] LABS: TOTAL PROTEIN,RANDOM URINE 7.5 MG/DL (0.0-12.0)
[2019-04-11 17:34] LABS: ALT/SGPT 21 U/L (12-78); BILIRUBIN,TOTAL 0.2 MG/DL (0.2-1.0); CREATININE FOR GFR 0.67 MG/DL (0.55-1.30); GLOMERULAR FILTRATION RATE > 60.0 (>60); LDH LACTATE DEHYDROGENASE 214 U/L (84-246); URIC ACID 3.9 MG/DL (2.6-6.0)
[2019-04-11 17:35] LABS: HEMOGLOBIN 12.2 g/dl (12.0-15.5); MEAN CORPUSCULAR HEMOGLOBIN 30.7 pg (27.0-33.0); MEAN CORPUSCULAR HGB CONC 33.9 g/dl (32.0-36.5); MEAN CORPUSCULAR VOLUME 90.7 fl (80.0-96.0); PLATELET COUNT, AUTOMATED 234 10^3/uL (150-450); RED BLOOD COUNT 3.97 10^6/uL (4.00-5.40); WHITE BLOOD COUNT 11.7 10^3/uL (4.0-10.0)
== END ==
LOC: M LAB 16:28
PROVIDERS: ATTEND Advanced Practice Midwife
DX: O14.93 Unspecified pre-eclampsia, third trimester (principal)

== ENCOUNTER → 2019-04-16 | Outpatient (CLI) | payer OTHER ==
[~2019-04-16] MED LIST changes: +ACET-683 PO; +IBUP80TA PO; +TUMS750C5 PO
--- NOTE | 2019-04-16 09:10 | REP ---
Obstetric ultrasound for growth: The patient has history of labor. There is a single intrauterine gestation in a vertex presentation. movement and cardiac activity are observed. The heart rate is 137 beats per minute. The placenta is anterior. There is no previa or abruptio. The placenta is grade zero. The amniotic fluid volume subjectively is normal. The amniotic fluid index is 16.8 (9.3 - 22.9). Cervix is 4.2 cm length. Gestational age by today's ultrasound is 29 weeks 5 days/AMY 04/30/2019. Gestational age by the first ultrasound is 28 weeks 5 days/AMY 05/07/2019. Gestational age by LMP is 28 weeks 2 days/AMY 05/10/2019. weight is 1342 grams/2 pounds, 15 ounces. This is the 62nd percentile for 28 weeks 2 days. anatomy has been previously assessed. Electronically Signed by Daniel Rendon MD 04/16/2019 09:02 A
== END ==
LOC: M RAD 06:33
PROVIDERS: ATTEND Advanced Practice Midwife
DX: O13.3 Gestational [pregnancy-induced] hypertension without significant proteinuria, third trimester (principal); Z3A.28 28 weeks gestation of pregnancy

== ENCOUNTER 2019-04-20 06:53 | Inpatient (IN) | payer OTHER ==
[~2019-04-20] VITALS: Ht 172.7 cm; Wt 127.2 kg
[2019-04-20] VITALS (30 sets, daily range): BP systolic 114–182; BP diastolic 60–101
[~2019-04-20 06:53] MED LIST changes: -ACET-683 PO; -IBUP80TA PO; -TUMS750C5 PO
[2019-04-20] MEDS ORDERED: TUMS750C5 PO (07:14)
[2019-04-20] MEDS ORDERED: COLA100C5 PO (07:15)
[2019-04-20] MEDS ORDERED: LACTATED RINGER'S 1000 ML IV STA (08:14)
[2019-04-20] MEDS: LR 1,000 ML IV SCH ×3 (08:15→18:53)
[2019-04-20 08:44] LABS: HEMATOCRIT 35.4 % (36.0-47.0); MEAN CORPUSCULAR HEMOGLOBIN 30.4 pg (27.0-33.0); MEAN CORPUSCULAR HGB CONC 33.9 g/dl (32.0-36.5); MEAN CORPUSCULAR VOLUME 89.6 fl (80.0-96.0); PLATELET COUNT, AUTOMATED 224 10^3/uL (150-450); RED BLOOD COUNT 3.95 10^6/uL (4.00-5.40)
[2019-04-20 09:06] LABS: ALT/SGPT 16 U/L (12-78); BILIRUBIN,TOTAL 0.2 MG/DL (0.2-1.0); CREATININE FOR GFR 0.65 MG/DL (0.55-1.30); GLOMERULAR FILTRATION RATE > 60.0 (>60); LDH LACTATE DEHYDROGENASE 194 U/L (84-246); URIC ACID 5.3 MG/DL (2.6-6.0)
[2019-04-20] MEDS ORDERED: OXYTOCIN DRIP 30 UNITS in IV 1 EA IV SCH ×2 (09:15→20:59)
[2019-04-20] MEDS ORDERED: OXYTOCIN 30 UNITS IN 0.9% NaCl 500ML IV BAG (J2590) As Ordered ONE ×2 (09:16→20:28)
[2019-04-20] MEDS ORDERED: ACETAMINOPHEN TAB 650MG DOSE (2X325MG) PO PRN (21:00)
[2019-04-20] MEDS ORDERED: PROMETHAZINE 25 MG TAB PO PRN (21:00)
[2019-04-20] MEDS ORDERED: ONDANSETRON 4MG/2ML VIAL (J2405) IV PRN (21:00)
[2019-04-20] MEDS ORDERED: IBUPROFEN 600 MG TAB PO PRN (21:00)
[2019-04-20] MEDS ORDERED: DOCUSATE SODIUM 100 MG CAP PO PRN (21:00)
[2019-04-20] MEDS ORDERED: MEASLES,MUMPS,RUBELLA VACCINE INJ (MMR-II) (90707) SC SCH (21:00)
[2019-04-20] MEDS ORDERED: DIBUCAINE 1% OINTMENT 30GM TOP PRN (21:00)
[2019-04-20] MEDS ORDERED: ACETAMINOPHEN 500 MG TAB PO PRN (21:00)
[2019-04-20] MEDS ORDERED: RHOGAM 300 MCG (1500 IU) INJ (J2790) IM SCH (21:00)
[2019-04-20] MEDS: IBUPROFEN 800 MG TAB PO PRN (21:45)
[2019-04-20] MEDS ORDERED: LIDOCAINE 1% MDV 20ML VIAL INFIL ONE (23:00)
[2019-04-21 06:00] VITALS: BP 132/82
[2019-04-21 08:20] VITALS: BP 130/80
[2019-04-21] MEDS: PRENATAL VITAMINS CHEWABLE TABLET PO SCH (08:24)
[2019-04-21] MEDS: IBUPROFEN 800 MG TAB PO PRN (08:24)
[2019-04-21 17:50] VITALS: BP 130/92
[2019-04-22 05:18] VITALS: BP 148/98
[2019-04-22] MEDS: PRENATAL VITAMINS CHEWABLE TABLET PO SCH (07:39)
[2019-04-22] MEDS ORDERED: IBUP80TA PO (07:46)
[2019-04-22] MEDS ORDERED: ACET-683 PO (07:46)
== END 2019-04-22 13:50 | disposition home or self-care (01) | DRG 807 ==
LOC: M LDI 06:53 → M OBS 23:30
PROVIDERS: ADMIT Obstetrics & Gynecology; ATTEND Obstetrics & Gynecology
PROC: 10E0XZZ Delivery of Products of Conception, External Approach (ICD-10-PCS; principal; 2019-04-20)
PROC: 0KQM0ZZ Repair Perineum Muscle, Open Approach (ICD-10-PCS; 2019-04-20)
PROC: 3E033VJ Introduction of Other Hormone into Peripheral Vein, Percutaneous Approach (ICD-10-PCS; 2019-04-20)
PROC: 10907ZC Drainage of Amniotic Fluid, Therapeutic from Products of Conception, Via Natural or Artificial Opening (ICD-10-PCS; 2019-04-20)
DX: O10.02 Pre-existing essential hypertension complicating childbirth (principal); Z37.0 Single live birth; Z3A.37 37 weeks gestation of pregnancy; O70.1 Second degree perineal laceration during delivery

== ENCOUNTER → 2019-06-09 | Outpatient (CLI) | payer OTHER ==
[~2019-06-09] MED LIST changes: +ACET-683 PO; +IBUP80TA PO; +TUMS750C5 PO
[2019-06-09 15:36] LABS: BASO % 0.3 % (0.0-1.0); EOS # 0.1 10^3/uL (0.0-0.5); EOS % 1.3 % (0.0-3.0); HEMATOCRIT 40.1 % (36.0-47.0); HEMOGLOBIN 12.8 g/dl (12.0-15.5); LYMPH % 33.4 % (24.0-44.0); MEAN CORPUSCULAR HEMOGLOBIN 28.5 pg (27.0-33.0); MEAN CORPUSCULAR HGB CONC 31.9 g/dl (32.0-36.5); MEAN CORPUSCULAR VOLUME 89.3 fl (80.0-96.0); MONO # 0.5 10^3/uL (0.0-0.8); MONO % 8.4 % (0.0-5.0); NEUTROPHILS # 3.4 10^3/uL (1.5-8.5); NEUTROPHILS % 56.1 % (36.0-66.0); PLATELET COUNT, AUTOMATED 326 10^3/uL (150-450); RED BLOOD COUNT 4.49 10^6/uL (4.00-5.40); WHITE BLOOD COUNT 6.1 10^3/uL (4.0-10.0)
[2019-06-09 15:46] LABS: INR 1.06; PROTHROMBIN TIME 13.5 SECONDS (11.8-14.0)
[2019-06-09 15:47] LABS: PARTIAL THROMBOPLASTIN TIME 33.9 SECONDS (25.0-38.4)
[2019-06-09 15:58] LABS: COLLAGEN EPINEPHRINE 162 SECONDS (74-162)
[2019-06-09 16:01] LABS: ALBUMIN 3.8 GM/DL (3.2-5.2); ALT/SGPT 55 U/L (12-78); BILIRUBIN,TOTAL 0.3 MG/DL (0.2-1.0); BLOOD UREA NITROGEN 15 MG/DL (7-18); C REACTIVE PROTEIN QUANTITATIV 1.26 MG/DL (0.00-0.30); CALCIUM LEVEL 8.6 MG/DL (8.5-10.1); CARBON DIOXIDE LEVEL 31 MEQ/L (21-32); CHLORIDE LEVEL 105 MEQ/L (98-107); CREATININE FOR GFR 0.82 MG/DL (0.55-1.30); GLOMERULAR FILTRATION RATE > 60.0 (>60); GLUCOSE, FASTING 102 MG/DL (70-100); LDH LACTATE DEHYDROGENASE 247 U/L (84-246); POTASSIUM SERUM 4.1 MEQ/L (3.5-5.1); SODIUM LEVEL 140 MEQ/L (136-145); TOTAL PROTEIN 7.2 GM/DL (6.4-8.2)
[2019-06-09 16:25] LABS: ERYTHROCYTE SEDIMENTATION RATE 35 mm/hr (0-20)
[2019-06-12 00:06] LABS: ANTINUCLEAR ANTIBODIES DIRECT Negative (Negative); Lyme Disease IgG/IgM Antibodie <0.91 ISR (0.00-0.90); Lyme Disease IgM Ab Quantitati <0.80 index (0.00-0.79)
== END ==
LOC: M LAB 13:56
PROVIDERS: ATTEND Physician Assistant
DX: R23.3 Spontaneous ecchymoses (principal)

== ENCOUNTER → 2019-08-26 | Outpatient (CLI) | payer OTHER | LOC: M PLALAB 09:56 | PROVIDERS: ATTEND Advanced Practice Midwife | DX: Z12.4 Encounter for screening for malignant neoplasm of cervix (principal) ==

== ENCOUNTER → 2020-02-13 | Outpatient (CLI) | payer OTHER | LOC: M LABSMTC 10:45 | PROVIDERS: ATTEND Orthopaedic Surgery | DX: Z11.59 Encounter for screening for other viral diseases (principal) ==

== ENCOUNTER → 2020-06-01 | Outpatient (CLI) | payer OTHER ==
--- NOTE | 2020-06-01 09:21 | REPMRS ---
Patient History The patient states she had a clinical breast exam in 09/2019. Family history of breast cancer at age 50 or over in paternal aunt, breast cancer at age 50 or over in paternal aunt, pancreatic cancer at age 50 or over in maternal aunt, colorectal cancer under age 50 in maternal uncle, breast cancer under age 50 in maternal aunt. Taking hormonal contraceptives for 15 years. 3D TOMOSYNTHESIS WAS PERFORMED. [facility] breast density b. Digital Woman Screen Mammo: June 01, 2020 - Exam #: [id number] Bilateral CC and MLO view(s) were taken. Technologist: Sonia Henry, Technologist No prior studies available for comparison. FINDINGS: The breast tissue is heterogeneously dense. This may lower the sensitivity of mammography. There is a moderate amount of residual fibroglandular tissue which is fairly symmetric. There is no dominant mass, areas of architectural distortion, or clustered microcalcification typical of malignancy. Assessment: BI-RADS/ACR category 1 mammogram. Negative Mammogram. Recommendation Routine screening mammogram in 1 year (for women over age 40). This mammogram was interpreted with the aid of an FDA-approved computer-aided dectection system. THE LIFETIME RISK OF BREAST CANCER IS 22.9%, THEREFORE SUPPLEMENTAL SCREENING MRI OF THE BREASTS IS RECOMMENDED IN 6 MONTHS. Electronically Signed By: Daniel Wu MD 06/01/20 [id number]
== END ==
LOC: M WHC 06:34
PROVIDERS: ATTEND Advanced Practice Midwife
DX: Z15.01 Genetic susceptibility to malignant neoplasm of breast (principal); Z80.3 Family history of malignant neoplasm of breast; Z79.3 Long term (current) use of hormonal contraceptives

== ENCOUNTER → 2020-08-04 | Outpatient (CLI) | payer SELFPAY | LOC: M LABSMTC 09:44 | PROVIDERS: ATTEND Pediatrics | DX: Z20.822 Contact with and (suspected) exposure to COVID-19 (principal) ==

== ENCOUNTER → 2020-09-03 | Outpatient (CLI) | payer OTHER ==
[2020-09-03 07:34] LABS: BASO % 0.7 % (0.0-1.0); EOS # 0.1 10^3/uL (0.0-0.5); HEMATOCRIT 39.2 % (36.0-47.0); HEMOGLOBIN 12.8 g/dl (12.0-15.5); LYMPH # 1.8 10^3/uL (1.5-5.0); LYMPH % 28.9 % (24.0-44.0); MEAN CORPUSCULAR HEMOGLOBIN 28.7 pg (27.0-33.0); MEAN CORPUSCULAR HGB CONC 32.7 g/dl (32.0-36.5); MEAN CORPUSCULAR VOLUME 87.9 fl (80.0-96.0); MONO # 0.5 10^3/uL (0.0-0.8); MONO % 8.2 % (2.0-8.0); NEUTROPHILS # 3.7 10^3/uL (1.5-8.5); PLATELET COUNT, AUTOMATED 350 10^3/uL (150-450); RED BLOOD COUNT 4.46 10^6/uL (4.00-5.40); WHITE BLOOD COUNT 6.1 10^3/uL (4.0-10.0)
[2020-09-03 08:09] LABS: ALBUMIN 3.6 GM/DL (3.2-5.2); ALT/SGPT 23 U/L (12-78); BILIRUBIN,TOTAL 0.5 MG/DL (0.2-1.0); BLOOD UREA NITROGEN 11 MG/DL (7-18); CALCIUM LEVEL 9.1 MG/DL (8.5-10.1); CARBON DIOXIDE LEVEL 26 MEQ/L (21-32); CHLORIDE LEVEL 107 MEQ/L (98-107); CREATININE FOR GFR 0.85 MG/DL (0.55-1.30); FREE T4 0.91 NG/DL (0.76-1.46); GLOMERULAR FILTRATION RATE > 60.0 (>60); GLUCOSE, FASTING 97 MG/DL (70-100); POTASSIUM SERUM 4.7 MEQ/L (3.5-5.1); SODIUM LEVEL 138 MEQ/L (136-145); THYROID STIMULATING HORMONE 0.689 uIU/ML (0.358-3.740); TOTAL PROTEIN 6.8 GM/DL (6.4-8.2)
[2020-09-03 08:10] LABS: TOTAL 25(OH) VITAMIN D 21.3 NG/ML (30.0-100.0)
[2020-09-03 09:08] LABS: HEMOGLOBIN A1c 5.2 %
== END ==
LOC: M LAB 06:16
PROVIDERS: ATTEND Physician Assistant
DX: Z00.00 Encounter for general adult medical examination without abnormal findings (principal); E66.8 Other obesity; R53.83 Other fatigue; E55.9 Vitamin D deficiency, unspecified

== ENCOUNTER → 2021-01-17 | Outpatient (REF) | payer OTHER | LOC: M SFHCWAGY 13:12 | PROVIDERS: ATTEND Advanced Practice Midwife | DX: Z01.419 Encounter for gynecological examination (general) (routine) without abnormal findings (principal); Z77.9 Other contact with and (suspected) exposures hazardous to health | CPT/HCPCS: 87624; G0123 ==

== ENCOUNTER → 2021-07-13 | Outpatient (REF) | payer OTHER | LOC: M LAB REF 17:25 | PROVIDERS: ATTEND Physician Assistant | DX: J06.9 Acute upper respiratory infection, unspecified (principal) ==

== ENCOUNTER → 2022-03-27 | Outpatient (REF) | payer OTHER | LOC: M LAB REF 08:30 | PROVIDERS: ATTEND Advanced Practice Midwife | DX: Z12.4 Encounter for screening for malignant neoplasm of cervix (principal) | CPT/HCPCS: 87624; G0123 ==

== ENCOUNTER → 2022-03-30 | Outpatient (CLI) | payer OTHER | LOC: M WHC 06:58 | PROVIDERS: ATTEND Advanced Practice Midwife | DX: Z12.31 Encounter for screening mammogram for malignant neoplasm of breast (principal); Z80.3 Family history of malignant neoplasm of breast; R92.8 Other abnormal and inconclusive findings on diagnostic imaging of breast ==

== ENCOUNTER → 2022-05-02 | Outpatient (CLI) | payer OTHER | LOC: M WHC 14:54 | PROVIDERS: ATTEND Advanced Practice Midwife | DX: R92.8 Other abnormal and inconclusive findings on diagnostic imaging of breast (principal) | CPT/HCPCS: 76642; 77065; G0279 ==

== ENCOUNTER 2022-06-12 17:15 | Emergency (ER) | payer OTHER ==
[~2022-06-12] VITALS: Ht 172.7 cm; Wt 122.7 kg
[2022-06-12] MEDS ORDERED: FLUO20CA22 (17:35)
[2022-06-12] MEDS ORDERED: TRAZ-252 (17:35)
[2022-06-12 18:20] LABS: RSV AMPLIFICATION NEGATIVE (NEGATIVE)
[2022-06-12 20:53] VITALS: BP 133/91
== END 2022-06-12 21:03 | disposition home or self-care (01) ==
LOC: M ED 17:15
DX: J09.X2 Influenza due to identified novel influenza A virus with other respiratory manifestations (principal)

== ENCOUNTER → 2022-11-07 | Outpatient (CLI) | payer OTHER ==
[~2022-11-07] MED LIST changes: +FLUO20CA22; +TRAZ-252
== END ==
LOC: M WHC 14:59
PROVIDERS: ATTEND Advanced Practice Midwife
DX: R92.8 Other abnormal and inconclusive findings on diagnostic imaging of breast (principal)
CPT/HCPCS: 77065; G0279

== ENCOUNTER → 2023-05-07 | Outpatient (REF) | payer OTHER | LOC: M SFHCWAGY 13:01 | PROVIDERS: ATTEND Advanced Practice Midwife | DX: Z12.4 Encounter for screening for malignant neoplasm of cervix (principal); R87.610 Atypical squamous cells of undetermined significance on cytologic smear of cervix (ASC-US) ==

== ENCOUNTER → 2023-05-07 | Outpatient (CLI) | payer OTHER | LOC: M WHC 08:05 | PROVIDERS: ATTEND Advanced Practice Midwife | DX: Z12.31 Encounter for screening mammogram for malignant neoplasm of breast (principal); Z80.3 Family history of malignant neoplasm of breast; Z80.0 Family history of malignant neoplasm of digestive organs ==

== ENCOUNTER → 2023-09-18 | Outpatient (CLI) | payer OTHER ==
[2023-09-18 15:54] LABS: BASO % 0.3 % (0.0-1.0); EOS # 0.1 10^3/uL (0.0-0.5); EOS % 1.4 % (0.0-3.0); HEMATOCRIT 39.9 % (36.0-47.0); HEMOGLOBIN 13.5 g/dl (12.0-15.5); LYMPH # 2.5 10^3/uL (1.5-5.0); LYMPH % 24.4 % (24.0-44.0); MEAN CORPUSCULAR HEMOGLOBIN 30.4 pg (27.0-33.0); MEAN CORPUSCULAR HGB CONC 33.8 g/dl (32.0-36.5); MEAN CORPUSCULAR VOLUME 89.9 fl (80.0-96.0); MONO # 0.8 10^3/uL (0.0-0.8); MONO % 8.1 % (2.0-8.0); NEUTROPHILS # 6.8 10^3/uL (1.5-8.5); NEUTROPHILS % 65.4 % (36.0-66.0); PLATELET COUNT, AUTOMATED 340 10^3/uL (150-450); RED BLOOD COUNT 4.44 10^6/uL (4.00-5.40); WHITE BLOOD COUNT 10.3 10^3/uL (4.0-10.0)
[2023-09-18 16:02] LABS: CK-MB VALUE MASS < 1.0 NG/ML (<3.6)
[2023-09-18 16:05] LABS: ALBUMIN 4.1 G/DL (3.2-5.2); ALKALINE PHOSPHATASE 65 U/L (46-116); ALT/SGPT 11 U/L (7.0-40); AST/SGOT 8 U/L (<34); BILIRUBIN,TOTAL 0.6 MG/DL (0.3-1.2); BLOOD UREA NITROGEN 16 MG/DL (9-23); CALCIUM LEVEL 9.2 MG/DL (8.5-10.1); CARBON DIOXIDE LEVEL 29 MMOL/L (20-31); CHLORIDE LEVEL 106 MMOL/L (98-107); CHOLESTEROL LEVEL 132 MG/DL (<200); CHOLESTEROL RISK RATIO 2.14 (<5); CPK CREATINE PHOSPHOKINASE 61 U/L (34-145); CREATININE FOR GFR 0.77 MG/DL (0.55-1.30); GLOMERULAR FILTRATION RATE > 60.0 (>60); GLUCOSE, FASTING 85 MG/DL (60-100); HDL CHOLESTEROL 61.5 MG/DL (>40); LDL CHOLESTEROL 52.1 MG/DL (<100); MB/CK RELATIVE INDEX 1.63 (< OR =4); NON-HDL-C 70.5 MG/DL; POTASSIUM SERUM 4.4 MMOL/L (3.5-5.1); SODIUM LEVEL 137 MMOL/L (136-145); TOTAL PROTEIN 6.6 G/DL (5.7-8.2); TRIGLYCERIDES LEVEL 92 MG/DL (<150)
[2023-09-18 16:06] LABS: FREE T4 1.15 NG/DL (0.89-1.76); THYROID STIMULATING HORMONE 0.513 uIU/ML (0.55-4.78)
== END ==
LOC: M PLALAB 14:16
PROVIDERS: ATTEND Physician Assistant
DX: R07.89 Other chest pain (principal)

== ENCOUNTER → 2025-04-14 | Outpatient (REF) | payer OTHER ==
[~2025-04-14] MED LIST changes: +FLUO-365; -FLUO20CA22
[2025-04-16 15:17] LABS: HPV APTIMA Not Detected (Not Detected)
== END ==
LOC: M SFHCWAGY 15:31
PROVIDERS: ATTEND Advanced Practice Midwife
DX: Z12.4 Encounter for screening for malignant neoplasm of cervix (principal)